=== PATIENT | female | born 1975 ===

== ENCOUNTER 2025-06-29 20:06 | Emergency (ER) | payer OTHER ==
[~2025-06-29] VITALS: Ht 152.4 cm; Wt 35.4 kg
[2025-06-29 21:01] LABS: BASOPHILS ABSOLUTE AUTO 0.05 K/mm3 (0.00-0.23); BASOPHILS PERCENT AUTO 1 % (0-2); EOSINOPHILS ABSOLUTE AUTO 0.44 K/mm3 (0.00-0.68); EOSINOPHILS PERCENT AUTO 7 % (0-6); Hematocrit 29.6 % (33.0-51.0); Hemoglobin 9.2 g/dL (11.5-16.0); IMMATURE GRAN ABSOLUTE AUTO 0.03 K/mm3 (0.00-0.10); IMMATURE GRAN PERCENT AUTO 1 % (0-1); LYMPHOCYTES ABSOLUTE AUTO 0.78 K/mm3 (0.84-5.20); LYMPHOCYTES PERCENT AUTO 12 % (21-46); MONOCYTES ABSOLUTE AUTO 0.67 K/mm3 (0.16-1.47); MONOCYTES PERCENT AUTO 10 % (4-13); Mean Corpuscular HGB Conc 31.1 g/dL (31.5-36.5); Mean Corpuscular Volume 88 fL (80-100); NEUTROPHILS ABSOLUTE AUTO 4.52 K/mm3 (1.96-9.15); NEUTROPHILS PERCENT AUTO 70 % (41-73); NRBC ABSOLUTE 0.00 K/mm3 (0.00-0.02); NRBC Auto 0.0 /100 WBC (0.0-0.2); Platelet Count 648 K/mm3 (150-400); RDW Coefficient Variation 18.3 % (11.7-14.2); RDW Standard Deviation 58.5 fL (35.1-46.3)
[2025-06-29 21:27] LABS: Alanine Aminotransfer (ALT/SGP 10.0 U/L (12-78); Albumin, Blood 3.1 g/dL (3.4-5.0); Albumin/Globulin Ratio 0.6 (0.8-1.8); Anion Gap 9.0 mmol/L (3-11); Aspartate Aminotrans (AST/SGOT 12.0 U/L (12-37); Bilirubin, Total 0.2 mg/dL (0.1-1.0); Blood Urea Nitrogen 24.0 mg/dL (8-24); CO2, Blood 27.0 mmol/L (21-32); Calcium, Blood 9.8 mg/dL (8.5-10.1); Chloride, Blood 100.0 mmol/L (98-108); Creatinine, Blood 0.54 mg/dL (0.40-1.00); Globulin, Blood 5.0 g/dL (2.2-4.0); Glucose, Blood 96.0 mg/dL (70-99); Potassium, Blood 3.3 mmol/L (3.5-5.5); Sodium, Blood 133.0 mmol/L (136-145); Total Protein, Blood 8.1 g/dL (6.4-8.2)
[2025-06-29] MEDS ORDERED: HYDROmorphone HCl/Pf 1MG SYR IV ONE (22:45)
[2025-06-30] MEDS ORDERED: HYDROmorphone HCl/Pf 1MG SYR IV ONE ×3 (00:40→10:25)
[2025-06-30 01:34] LABS: Source, Urine Clean Catch
[2025-06-30 01:43] LABS: Bilirubin, Urine Neg (Neg); Color, Urine Yellow (P-Yellow); Glucose Qualitative, Urine Neg (Neg); Ketones, Urine 1+ (Neg); Leukocyte Esterase, Urine 2+ (Neg); Protein, Urine 3+ (Neg); Specific Gravity, Urine 1.020 (1.003-1.022); Urobilinogen, Urine NORM (Normal)
[2025-06-30 02:09] LABS: White Blood Cells, Urine 50-100 /hpf (0-5)
[2025-06-30] MEDS ORDERED: MetroNIDAZOLE 500MG/NS 100 ml 100 ML IV ONE (02:40)
[2025-06-30] MEDS ORDERED: CefTRIAXone Sodium 1,000 MG in NS 100 ML IV ONE (02:45)
[2025-06-30 03:04] LABS: C-REACTIVE PROTEIN, EXT RANGE 9.6 mg/dL (0.000-0.300)
[2025-06-30] MEDS ORDERED: Ketorolac Tromethamine 15mg Vial IV ONE (04:25)
[2025-06-30] MEDS ORDERED: CYCLOBENZAPRINE5 MG PO (09:38)
[2025-06-30] MEDS ORDERED: METHADONE HCL1010 PO (09:38)
[2025-06-30] MEDS ORDERED: OXYC5 PO (09:39)
[2025-06-30] MEDS ORDERED: Vancomycin (Pharmacy Consult) IV PRN (10:20)
[2025-06-30] MEDS ORDERED: Ketorolac Tromethamine 30mg Vial IV ONE (10:25)
[2025-06-30] MEDS ORDERED: Masophen500 MG PO (10:54)
== END 2025-06-30 14:35 | disposition home or self-care (01) ==
LOC: ER 20:06
PROVIDERS: Emergency Medicine
DX: K68.12 Psoas muscle abscess (principal); M46.46 Discitis, unspecified, lumbar region; M46.26 Osteomyelitis of vertebra, lumbar region; C79.51 Secondary malignant neoplasm of bone; D64.9 Anemia, unspecified; E87.6 Hypokalemia; E87.1 Hypo-osmolality and hyponatremia; Z93.6 Other artificial openings of urinary tract status; Z88.6 Allergy status to analgesic agent; Z88.5 Allergy status to narcotic agent; Z85.41 Personal history of malignant neoplasm of cervix uteri; Z79.891 Long term (current) use of opiate analgesic; Z79.899 Other long term (current) drug therapy
CPT/HCPCS: 36415; 74177; 80053; 81001; 83605; 83690; 85025; 85651; 86140; 87040; 87077; 87086; 87186; 93005; 93010; 96365-59; 96367; 96368; 96375; 96376; 99285-25; A9270; J0696; J1171; J1885; J3373; J7050; Q9967

== ENCOUNTER 2025-07-09 13:26 | Inpatient (IN) | payer OTHER ==
[~2025-07-09] VITALS: Ht 152.4 cm; Wt 39.0 kg
[~2025-07-09 13:26] MED LIST: CYCLOBENZAPRINE5 MG PO; METHADONE HCL1010 PO; Masophen500 MG PO; OXYC5 PO; Vancomycin (Pharmacy Consult) IV SCH
[2025-07-09] MEDS ORDERED: NS 1,000 ML IV SCH (13:55)
[2025-07-09] MEDS ORDERED: Ondansetron HCl 2 MG / ML 2ML Vial IV ONE (13:55)
[2025-07-09] MEDS ORDERED: FentaNYL Citrate 50 MCG/ML 2 ML Injection IV ONE ×2 (13:55→15:10)
[2025-07-09] MEDS ORDERED: Metoclopramide HCl 5MG / ML 2ML Vial IV ONE (15:10)
[2025-07-09] MEDS ORDERED: Ketorolac Tromethamine 15mg Vial IV ONE (16:10)
[2025-07-09 17:14] LABS: Source, Urine Clean Catch
[2025-07-09 17:21] LABS: Bilirubin, Urine Neg (Neg); Color, Urine Yellow (P-Yellow); Glucose Qualitative, Urine Neg (Neg); Ketones, Urine Neg (Neg); Leukocyte Esterase, Urine 3+ (Neg); Protein, Urine 3+ (Neg); Specific Gravity, Urine 1.015 (1.003-1.022); Urobilinogen, Urine NORM (Normal)
[2025-07-09 17:38] LABS: White Blood Cells, Urine TNTC /hpf (0-5)
[2025-07-09 18:30] LABS: BASOPHILS ABSOLUTE AUTO 0.04 K/mm3 (0.00-0.23); BASOPHILS PERCENT AUTO 1 % (0-2); EOSINOPHILS ABSOLUTE AUTO 0.40 K/mm3 (0.00-0.68); EOSINOPHILS PERCENT AUTO 6 % (0-6); Hematocrit 23.7 % (33.0-51.0); Hemoglobin 7.3 g/dL (11.5-16.0); IMMATURE GRAN ABSOLUTE AUTO 0.02 K/mm3 (0.00-0.10); IMMATURE GRAN PERCENT AUTO 0 % (0-1); LYMPHOCYTES ABSOLUTE AUTO 0.41 K/mm3 (0.84-5.20); LYMPHOCYTES PERCENT AUTO 6 % (21-46); MONOCYTES ABSOLUTE AUTO 0.67 K/mm3 (0.16-1.47); MONOCYTES PERCENT AUTO 10 % (4-13); Mean Corpuscular HGB Conc 30.8 g/dL (31.5-36.5); Mean Corpuscular Volume 91 fL (80-100); NEUTROPHILS ABSOLUTE AUTO 5.32 K/mm3 (1.96-9.15); NEUTROPHILS PERCENT AUTO 78 % (41-73); NRBC ABSOLUTE 0.00 K/mm3 (0.00-0.02); NRBC Auto 0.0 /100 WBC (0.0-0.2); Platelet Count 617 K/mm3 (150-400); RDW Coefficient Variation 18.3 % (11.7-14.2); RDW Standard Deviation 60.6 fL (35.1-46.3)
[2025-07-09 18:51] LABS: Magnesium, Blood 1.8 mg/dL (1.6-2.4)
[2025-07-09 18:52] LABS: Alanine Aminotransfer (ALT/SGP 12.0 U/L (12-78); Albumin, Blood 2.5 g/dL (3.4-5.0); Albumin/Globulin Ratio 0.6 (0.8-1.8); Anion Gap 7.0 mmol/L (3-11); Aspartate Aminotrans (AST/SGOT 24.0 U/L (12-37); Bilirubin, Total 0.2 mg/dL (0.1-1.0); Blood Urea Nitrogen 13.0 mg/dL (8-24); CO2, Blood 27.0 mmol/L (21-32); Calcium, Blood 8.7 mg/dL (8.5-10.1); Chloride, Blood 106.0 mmol/L (98-108); Creatinine, Blood 0.47 mg/dL (0.40-1.00); Globulin, Blood 4.4 g/dL (2.2-4.0); Glucose, Blood 84.0 mg/dL (70-99); Potassium, Blood 3.8 mmol/L (3.5-5.5); Sodium, Blood 136.0 mmol/L (136-145); Total Protein, Blood 6.9 g/dL (6.4-8.2)
[2025-07-09] MEDS ORDERED: CefTRIAXone Sodium 1,000 MG in NS 100 ML IV ONE (20:40)
[2025-07-09] MEDS ORDERED: Vancomycin (Pharmacy Consult) IV PRN (20:50)
[2025-07-09] MEDS ORDERED: Piperacillin/Tazobactam Sod 4.5 GM in NS 100 ML IV ONE (20:50)
[2025-07-09] MEDS ORDERED: PREGABALIN25 MG PO (22:33)
[2025-07-10] VITALS (10 sets, daily range): BP systolic 88–143; BP diastolic 58–83
[2025-07-10] MEDS ORDERED: CefTRIAXone Sodium 2,000 MG in NS 100 ML IV SCH (00:21)
[2025-07-10] MEDS ORDERED: MetroNIDAZOLE 500MG/NS 100 ml 100 ML IV SCH (00:25)
[2025-07-10] MEDS ORDERED: Piperacillin/Tazobactam Sod 4.5 GM in NS 100 ML IV ONE (00:50)
[2025-07-10 00:57] LABS: C-Reactive Protein, High Sens. 98.0 mg/L (0.000-3.000)
[2025-07-10] MEDS ORDERED: Ketorolac Tromethamine 15mg Vial IV ONE (01:45)
--- NOTE | 2025-07-10 01:48 | NUR ---
PT REFUSED SCDS
[2025-07-10] MEDS ORDERED: NS 250 ML IV PRN (02:30)
[2025-07-10 02:35] LABS: BASOPHILS ABSOLUTE AUTO 0.04 K/mm3 (0.00-0.23); BASOPHILS PERCENT AUTO 1 % (0-2); EOSINOPHILS ABSOLUTE AUTO 0.30 K/mm3 (0.00-0.68); EOSINOPHILS PERCENT AUTO 5 % (0-6); Hematocrit 23.0 % (33.0-51.0); Hemoglobin 7.0 g/dL (11.5-16.0); IMMATURE GRAN ABSOLUTE AUTO 0.02 K/mm3 (0.00-0.10); IMMATURE GRAN PERCENT AUTO 0 % (0-1); LYMPHOCYTES ABSOLUTE AUTO 0.54 K/mm3 (0.84-5.20); LYMPHOCYTES PERCENT AUTO 9 % (21-46); MONOCYTES ABSOLUTE AUTO 0.71 K/mm3 (0.16-1.47); MONOCYTES PERCENT AUTO 12 % (4-13); Mean Corpuscular HGB Conc 30.4 g/dL (31.5-36.5); Mean Corpuscular Volume 89 fL (80-100); NEUTROPHILS ABSOLUTE AUTO 4.29 K/mm3 (1.96-9.15); NEUTROPHILS PERCENT AUTO 73 % (41-73); NRBC ABSOLUTE 0.00 K/mm3 (0.00-0.02); NRBC Auto 0.0 /100 WBC (0.0-0.2); Platelet Count 579 K/mm3 (150-400); RDW Coefficient Variation 18.3 % (11.7-14.2); RDW Standard Deviation 59.7 fL (35.1-46.3)
[2025-07-10 02:41] LABS: Alanine Aminotransfer (ALT/SGP 11.0 U/L (12-78); Albumin, Blood 2.5 g/dL (3.4-5.0); Albumin/Globulin Ratio 0.6 (0.8-1.8); Anion Gap 9.0 mmol/L (3-11); Aspartate Aminotrans (AST/SGOT 14.0 U/L (12-37); Bilirubin, Total 0.2 mg/dL (0.1-1.0); Blood Urea Nitrogen 13.0 mg/dL (8-24); CO2, Blood 26.0 mmol/L (21-32); Calcium, Blood 8.7 mg/dL (8.5-10.1); Chloride, Blood 105.0 mmol/L (98-108); Creatinine, Blood 0.54 mg/dL (0.40-1.00); Globulin, Blood 4.0 g/dL (2.2-4.0); Glucose, Blood 75.0 mg/dL (70-99); Potassium, Blood 3.7 mmol/L (3.5-5.5); Sodium, Blood 136.0 mmol/L (136-145); Total Protein, Blood 6.5 g/dL (6.4-8.2)
--- NOTE | 2025-07-10 05:55 | NUR ---
PATIENT CAME UP FROM THE ED AT 0111. PER THE NURSING REPORT DR ONLY WANTED ZOSYN ON, HOWEVER AFTER A CALL FROM PHARMACY AND CLARIFICATION FROM THE MD CASIANO WAS ADDED BACK ON. PATIENT HAS BEEN IN PAIN FOR THE MAJORITY OF THE NIGHT HOWEVER SHE STATED THAT IT WAS "TOLERABLE" SHE REQUESTED HER ROXICODONE THIS MORNING. PT IS NPO EXCEPT FOR MEDS. SHE TOOK HER MEDICATION WITH A SMALL AMOUNT OF WATER JUST TO GET THE MEDICATION DOWN. PATIENT IS IN BED, ALERT AND ORIENTED WITH HER BELONGINGS AND CALL HE WITHIN REACH.
[2025-07-10] MEDS ORDERED: Piperacillin/Tazobactam Sod 4.5 GM in NS 100 ML IV SCH (06:00)
[2025-07-10] MEDS ORDERED: Enoxaparin 40 MG/0.4 ML SYR SC SCH (09:00)
[2025-07-10] MEDS ORDERED: Lactobacil 2-S.Thermo-Bifido 1 1 Cap PO SCH (09:00)
[2025-07-10] MEDS ORDERED: LORazepam 2 MG/ML 1ML Injection IV PRN (12:25)
--- NOTE | 2025-07-10 16:33 | NUR ---
DISCUSSED CASE WITH PROVIDER. PATIENT WAS RECENTLY AT [facility] WHERE HOSPICE WAS RECOMENDED. PATIENT WAS GIVEN ATIVAN EARLIER IN ATEMPT TO RELAX HER ENOUGH FOR AN MRI, THIS WAS UNSUCESSFUL AND PATIENT IS CURRENTLY LETHARGIC. CALLED PATIENTS DAUGHTER IN AN ATTEMPT TO GATHER MORE INFORMATION, HER DAUGHTER, JOEY, LIVES IN [facility] AND REPORTS THAT SHE SPEAKS TO HER MOM REGULARLY. SHE REPORTED THAT SHE WAS UNAWARE HER MOM WAS IN THE HOSPITAL AT THIS TIME. SHE KNEW THAT HER MOTHER WAS RECENTLY IN THE HOSPITAL AT [facility], WAS TOLD THAT SHE HAD AN ABCESS, BUT THAT SHE WAS BETTER. SHE IS CONCERNED THAT PATIENT HAS NOT BEEN COMPLEATLY TRANSPARENT ABOUT HER CURRENT HEALTH. RELAYED THIS TO PROVIDER. WILL ADDRESS THIS WITH PATIENT WHEN SHE IS MORE ALERT.
[2025-07-10] MEDS ORDERED: Prochlorperazine Edisylate 10 mg Vial IV PRN (17:20)
--- NOTE | 2025-07-10 19:18 | NUR ---
SHIFT SUMMARY PT IS A/OX3-4. PT REPORTS PAIN TO THE R ABD AND RLE, MEDICATED PER MAR. PT CONSISTENTLY SITS IN BED WITH LEGS STRAIGHT OUT IN FROM OF HER WITH HER HEAD TO HER KNEES. ATTEMPT TO COMPLETE MRI THIS AFTERNOON, PT GIVEN IV ATIVAN PRIOR. PT UNABLE TO LAY FLAT IN ORDER FOR MRI TO BE COMPLETED. AFTER ATIVAN ADMINISTRATION PT BECAME DIFFICULT TO AROUSE. CONT PULSE OX IN PLACE, SATS >92%. DR SINGH AND MARY AT BEDSIDE. AROUND 1700 PT BECAME FOR ALERT AND BEGAN RESONDING TO QUESTIONS WHILE SITTING ON THE SIDE OF THE BED. PT CRYING IN PAIN AND REPORTS NAUSEA. PT MEDICATED FOR PAIN AND NAUSEA PER JAN. PT IS CURRENTLY RESTING IN BED QUIETLY. NO SIGNS OR SYMPTOMS OF RESP DISTRESS NOTED.
[2025-07-10 19:47] LABS: Hematocrit 24.6 % (33.0-51.0); Hemoglobin 7.4 g/dL (11.5-16.0)
[2025-07-11] MEDS ORDERED: FentaNYL Citrate 50 MCG/ML 2 ML Injection IV ONE ×3 (01:00→05:45)
[2025-07-11 04:25] LABS: BASOPHILS ABSOLUTE AUTO 0.05 K/mm3 (0.00-0.23); BASOPHILS PERCENT AUTO 1 % (0-2); EOSINOPHILS ABSOLUTE AUTO 0.37 K/mm3 (0.00-0.68); EOSINOPHILS PERCENT AUTO 6 % (0-6); Hematocrit 23.8 % (33.0-51.0); Hemoglobin 7.2 g/dL (11.5-16.0); IMMATURE GRAN ABSOLUTE AUTO 0.01 K/mm3 (0.00-0.10); IMMATURE GRAN PERCENT AUTO 0 % (0-1); LYMPHOCYTES ABSOLUTE AUTO 0.62 K/mm3 (0.84-5.20); LYMPHOCYTES PERCENT AUTO 9 % (21-46); MONOCYTES ABSOLUTE AUTO 0.67 K/mm3 (0.16-1.47); MONOCYTES PERCENT AUTO 10 % (4-13); Mean Corpuscular HGB Conc 30.3 g/dL (31.5-36.5); Mean Corpuscular Volume 92 fL (80-100); NEUTROPHILS ABSOLUTE AUTO 4.94 K/mm3 (1.96-9.15); NEUTROPHILS PERCENT AUTO 74 % (41-73); NRBC ABSOLUTE 0.00 K/mm3 (0.00-0.02); NRBC Auto 0.0 /100 WBC (0.0-0.2); Platelet Count 580 K/mm3 (150-400); RDW Coefficient Variation 18.1 % (11.7-14.2); RDW Standard Deviation 60.8 fL (35.1-46.3)
[2025-07-11 05:07] LABS: Alanine Aminotransfer (ALT/SGP 11.0 U/L (12-78); Albumin, Blood 2.4 g/dL (3.4-5.0); Albumin/Globulin Ratio 0.6 (0.8-1.8); Anion Gap 11.0 mmol/L (3-11); Aspartate Aminotrans (AST/SGOT 15.0 U/L (12-37); Bilirubin, Total 0.3 mg/dL (0.1-1.0); Blood Urea Nitrogen 9.0 mg/dL (8-24); CO2, Blood 24.0 mmol/L (21-32); Calcium, Blood 9.1 mg/dL (8.5-10.1); Chloride, Blood 103.0 mmol/L (98-108); Creatinine, Blood 0.58 mg/dL (0.40-1.00); Globulin, Blood 4.3 g/dL (2.2-4.0); Glucose, Blood 48.0 mg/dL (70-99); Potassium, Blood 3.3 mmol/L (3.5-5.5); Sodium, Blood 135.0 mmol/L (136-145); Total Protein, Blood 6.7 g/dL (6.4-8.2); Vancomycin, Trough 24.6 ug/mL (5.0-10.0)
--- NOTE | 2025-07-11 06:39 | NUR ---
SHIFT SUMMARY 50 YR F ADMITTED ON 07/09/25. PT WAS A [facility] TRANSFER TO [facility] IN [place], OR THIS SHIFT. EMS PICKED PT UP AT APPROX 0550. PT HAD A CRITICAL LOW BLOOD SUGAR THIS MORNING (46). SHE WAS GIVEN APPLE JUICE AND LISA CRACKERS WITH PEANUT BUTTER BRINGING HER BLOOD SUGAR UP TO 64. THIS WAS REPORTED TO NURSE AT [facility] THE EMT'S TRANSPROTING HER.
== END 2025-07-11 05:53 | disposition short-term general hospital (02) | DRG 371 ==
LOC: ER 13:26 → MEDS 23:36
PROVIDERS: Emergency Medicine; Internal Medicine; Student in an Organized Health Care Education/Training Program; ADMIT Student in an Organized Health Care Education/Training Program
DX: K68.12 Psoas muscle abscess (principal); G06.1 Intraspinal abscess and granuloma; M46.26 Osteomyelitis of vertebra, lumbar region; C79.51 Secondary malignant neoplasm of bone; N39.0 Urinary tract infection, site not specified; C53.9 Malignant neoplasm of cervix uteri, unspecified; D63.0 Anemia in neoplastic disease; F15.90 Other stimulant use, unspecified, uncomplicated; K76.0 Fatty (change of) liver, not elsewhere classified; E88.09 Other disorders of plasma-protein metabolism, not elsewhere classified; K80.20 Calculus of gallbladder without cholecystitis without obstruction; F17.210 Nicotine dependence, cigarettes, uncomplicated; G89.29 Other chronic pain; M25.551 Pain in right hip; N13.9 Obstructive and reflux uropathy, unspecified; Z88.5 Allergy status to narcotic agent; Z88.8 Allergy status to other drugs, medicaments and biological substances; Z79.891 Long term (current) use of opiate analgesic
CPT/HCPCS: 36415; 74177; 80053; 80202; 81001; 82947; 83605; 83690; 83735; 85014; 85018; 85025; 85651; 86141; 86850; 86870; 86900; 86901; 86905; 96374-59; 96375; 99285-25; A9270; J0696; J0780; J1885; J2060; J2405; J2543; J2765; J3010; J3373; J7030; J7050; Q9967